=== PATIENT | female | born 1960 | race Caucasian/White ===

== ENCOUNTER 2018-02-04 10:35 | Day surgery (SDC) | payer OTHER ==
[~2018-02-04 10:35] MED LIST: DESFLURANE 15 MIN; EPHEDrine SULFATE 50 MG/5 ML SYG
[2018-02-04] MEDS ORDERED: KETOROLAC 30 MG INJ (11:47)
[2018-02-04] MEDS ORDERED: METOCLOPRAMIDE 10 MG INJ (11:47)
[2018-02-04] MEDS ORDERED: CEFAZOLIN 1 GM INJ (11:47)
[2018-02-04] MEDS ORDERED: FENTAnyl 50 MCG/ML VIAL (11:47)
[2018-02-04] MEDS ORDERED: PROPOFOL 20 ML (11:47)
[2018-02-04] MEDS ORDERED: ONDANSETRON 4 MG INJ (11:47)
[2018-02-04] MEDS ORDERED: MIDAZOLAM 1 MG/ML 2 ML INJ (11:49)
[2018-02-04] MEDS ORDERED: HYDROmorphONE 2 MG/ML SYG (12:17)
[2018-02-04] MEDS: POVIDONE IODINE 10% 28.4 GM OINT (12:59)
[2018-02-04] MEDS: BUPIVACAINE 0.5% (SDV) 30 ML INJ (13:05)
== END 2018-02-04 15:37 | disposition home or self-care (01) ==
LOC: SDS 10:35
DX: M20.11 Hallux valgus (acquired), right foot (principal); M21.611 Bunion of right foot; M20.41 Other hammer toe(s) (acquired), right foot
CPT/HCPCS: 28285; 88304; 88311

== ENCOUNTER 2018-04-08 09:06 | Day surgery (SDC) | payer OTHER ==
[2018-04-21 06:31] LABS: ADD MAN DIFF? NO
[2018-04-21 06:36] LABS: BASOPHIL # 0.1 10^3/ul (0.0-0.1); BASOPHILS % 1.1 % (0.0-2.0); EOSINOPHILS # 0.2 10^3/ul (0.0-0.5); EOSINOPHILS % 2.9 % (0.0-7.0); HEMATOCRIT 38.3 % (37.0-47.0); HEMOGLOBIN 13.1 g/dl (12.0-16.0); LYMPHOCYTES # 2.2 10^3/ul (0.8-2.9); LYMPHOCYTES % 41.7 % (15.0-51.0); MEAN CORPUSCULAR HEMOGLOBIN 31.8 pg (29.0-33.0); MEAN CORPUSCULAR HGB CONC 34.2 g/dl (32.0-37.0); MEAN PLATELET VOLUME 9.7 fl (7.4-10.4); MONOCYTE # 0.4 10^3/ul (0.3-0.9); MONOCYTES % 7.6 % (0.0-11.0); NEUTROPHIL # 2.4 10^3/ul (1.6-7.5); NEUTROPHILS % 46.5 % (39.0-77.0); PLATELET COUNT 311 10^3/UL (140-415); RED BLOOD COUNT 4.12 10^6/ul (4.20-5.40); RED CELL DISTRIBUTION WIDTH 11.9 % (11.5-14.5)
[2018-04-21 06:36] LABS: WHITE BLOOD COUNT 5.2 10^3/ul (4.8-10.8)
[2018-04-21 06:58] LABS: ALANINE AMINOTRANSFERASE 60 IU/L (13-69); ALBUMIN 4.7 g/dl (3.3-4.9); ALKALINE PHOSPHATASE 108 IU/L (42-121); ANION GAP 12 (5-13); ASPARTATE AMINO TRANSFERASE 48 IU/L (15-46); BILIRUBIN,INDIRECT 1.2 mg/dl (0-1.1); BILIRUBIN,TOTAL 1.2 mg/dl (0.2-1.3); BLOOD UREA NITROGEN 9 mg/dl (7-20); CALCIUM 9.9 mg/dl (8.4-10.2); CARBON DIOXIDE 27 mmol/L (21-31); CHLORIDE 104 mmol/L (97-110); CREATININE 0.64 mg/dl (0.44-1.00); Estimated GFR > 60 mL/min (>60); GLUCOSE 90 mg/dl (70-220); POTASSIUM 3.7 mmol/L (3.5-5.1); SODIUM 143 mmol/L (135-144); TOTAL PROTEIN 8.6 g/dl (6.1-8.1)
[2018-04-21 07:33] LABS: INR 0.99; PROTIME 13.2 Sec (11.9-14.9)
[2018-04-21] MEDS ORDERED: MIDAZOLAM 1 MG/ML 2 ML INJ (07:33)
[2018-04-21] MEDS ORDERED: FENTAnyl 50 MCG/ML VIAL (07:33)
[2018-04-21 07:34] LABS: PARTIAL THROMBOPLASTIN TIME 29.2 Sec (23.0-35.0)
[2018-04-21] MEDS ORDERED: IODIXANOL LOCM 100 ML BTL (07:52)
[2018-04-21] MEDS ORDERED: LIDOCAINE 1% (MDV) 20 ML INJ (07:52)
[2018-04-21] MEDS ORDERED: HEPARIN 1000 UNITS/NS (A-LINE) 1,000 ML (07:52)
== END 2018-04-21 12:14 | disposition home or self-care (01) ==
LOC: CCL 09:06 → SDS 09:06 → CCL 04-21 12:14
DX: I96 Gangrene, not elsewhere classified (principal); I73.9 Peripheral vascular disease, unspecified; E11.9 Type 2 diabetes mellitus without complications; I10 Essential (primary) hypertension
CPT/HCPCS: 36246; 75630; 80053; 85025; 85610; 85730